=== PATIENT | female | born 1940 | race Caucasian/White ===

== ENCOUNTER 2016-07-28 11:50 | Emergency (ER) | payer OTHER ==
--- NOTE | 2016-07-28 13:47 | DIAGNOSTIC IMAGING REPORT ---
PROCEDURE: XR FOOT 3 VIEWS - RIGHT INDICATION: First metatarsal pain. Prior surgery. TECHNIQUE: Three views. COMPARISON: Comparison made radiographs of the right foot on 10/14/2008. FINDINGS: There are postoperative changes with bunionectomy (vertical osteotomy) and corrective osteotomy of the first metatarsal head (transfixed with solitary screw). In addition, there is a vertical osteotomy of the lateral fifth metatarsal head/neck. There are mild degenerative change of the right midfoot. The rest of the osseous structures and joint spaces are within normal limits there is no evidence of acute process IMPRESSION: 1. Postoperative changes of the right foot. 2. Status post bunionectomy and corrective osteotomy of the first metatarsal head. 3. Status post vertical osteotomy of the lateral fifth metatarsal head. 4. Mild degenerative change of the right midfoot. 5. No change. No evidence of acute process. 6. Findings discussed with MALDONADO Duran.
--- NOTE | 2016-07-28 13:56 | ED ORDER SUMMARY ---
..... Patient: DICK CARLSON OrderSheet [facility] VisitID: [id number] [address] [place] [address] 76y, F Registration Date/Time: 07/28/2016 ORDER SHEET Weight: 78.0 kg (stated) Allergies: Keflex GENERAL ORDERS: Foot 3V Right Urgent (13:17 07/28/2016 HBivens A.R.N.P.) (Ack 13:26 LTapper) (13:30 LTapper) Suture Removal (13:17 07/28/2016 HBivens A.R.N.P.) (14:04 Jasmin R.N.) MEDICATION ORDERS: IV FLUIDS: ORDER SHEET NOTES: [Electronically signed by Amada Prater R.N. (14:36 07/28/2016)] [Electronically signed by Vicki Merchant.R.N.P. (16:09 07/28/2016)] [Electronically locked/signed by Amada Prater R.N. (14:36 07/28/2016)]
--- NOTE | 2016-07-28 13:56 | ED NURSING NOTES ---
Clinical Report - Nurses [facility] [place] [address] [address] 07/28/2016 11:53 Patient: DICK CARLSON [facility]#: [id number] TRIAGE Triage time 12:21. Acuity: LEVEL 3. Chief Complaint: RECHECK OF WOUND and SUTURE REMOVAL. Alert. No acute distress. SANDY COMA SCORE: [place] Coma Scale: 15- eyes open spontaneously (4); best verbal response- oriented x 4 (5); best motor response- obeys commands (6). --12:30 Amada Prater R.N. 12:20 07/28/16. BP: 190/92. HR: 56. RR: 17. O2 saturation: 98%. Temp: 98.8 F (oral). Pain level now: 08/02. --12:30 Amada Prater R.N. 12:20 07/28/16. BP: 190/92. HR: 56. RR: 17. O2 saturation: 98%. Temp: 98.8 F (oral). Pain level now: 08/02. --12:30 Amada Prater R.N. Weight: 78 kg stated. Height/Length: 62 inches Per Patient. BMI: 31.5. --12:22 Amada Prater R.N. Medications Blood Pressure Pill. Hydrochlorothiazide Oral 25 mg, daily. --14:35 Amada Prater R.N. Allergies Keflex. --14:35 Amada Prater R.N. History Arrived by private vehicle. Historian: patient and family. Primary physician (haylee). Location: left great toe (Pain in rt foot also). She has had redness. Previous treatment: Previously seen ten days ago. Laceration repaired. PO antibiotic given in ED. Prescription given. PAST MEDICAL HX: Tetanus status: up-to-date. The patient is post-menopausal. SOCIAL HX: Never smoker. No alcohol use or drug use. FALL RISK ASSESSMENT: Fall risk assessment completed. No fall risk identified. NUTRITIONAL RISK ASSESSMENT: The nutritional risk assessment revealed no deficiencies. FUNCTIONAL ASSESSMENT: Functional assessment: no impairments noted. LEARNING NEEDS ASSESSMENT: The learning needs assessment revealed no barriers. SKIN INTEGRITY ASSESSMENT: Skin integrity risk assessment completed. No skin integrity risk identified. --12:30 Amada Prater R.N. PROBLEMS: Fractured Phalanx (Toe). Laceration. Peripheral Neuropathy. Charcot . Diabetes Mellitus. Tetanus Status. Cellulitis. Abscess. Immunizations. Mild cardial infarction. Hypertension. Neck Pain. Diabetes Mellitus Type 2. Asthma. Back Pain. --12:29 Amada Prater R.N. ADDITIONAL SURGERIES: Adenoidectomy. Hysterectomy. Tonsillectomy. --12:29 Amada Prater R.N. Interventions ID band on patient. To room. --12:30 Amada Prater R.N. PHYSICAL ASSESSMENT To room via wheelchair. GENERAL / NEURO / PSYCH: Alert. Oriented X 4. Appears in no acute distress. Patient's nutrition appears within normal limits. Appears anxious. Does not appear in pain. EXTREMITIES: Extremity pulses are within normal limits. Capillary refill is less than 2 seconds in the extremities. ROM of extremities within normal limits. SKIN: Skin is warm and dry. Healing wound. Sutures intact. --12:30 Amada Prater R.N. NURSING PROGRESS NOTES Patient gowned. Two patient identifiers checked. Call light placed in reach. Side rails up x 2. Bed placed in lowest position. Brakes of bed on. Patient ready for evaluation. --12:31 Amada Prater R.N. Sutures to left great toe removed by nurse; wound edges well approximated, minimal redness present antibiotic ointment applied (bacitracin). No drainage or tenderness present. --14:17 Amada Prater R.N. DISPOSITION / DISCHARGE Condition at departure: improved. No learning barriers present. Discharge instructions provided and reviewed with the patient and family. Patient verbalized understanding. Written instructions provided in Divehi. The patient was discharged home and accompanied by family. She left the Emergency Department ambulatory and via private vehicle. Family member driving. Medication list reviewed and validated. --14:34 Amada Prater R.N. 14:17 07/28/16. BP: 215/60 taken while sitting. HR: 58. RR: 20. O2 saturation: 99%. Temp: deferred. Pain level now: 0/10. --14:34 Amada Prater R.N. 14:17 07/28/16. BP: 215/60 taken while sitting. HR: 58. RR: 20. O2 saturation: 99%. Temp: deferred. Pain level now: . 12:20 07/28/16. BP: 190/92. HR: 56. RR: 17. O2 saturation: 98%. Temp: 98.8 F (oral). Pain level now: 08/02. --14:34 Amada Prater R.N. Locked/Released at 07/28/2016 14:36 by Amada Prater R.N.
--- NOTE | 2016-07-28 13:56 | ED ORDER SUMMARY ---
..... Patient: DICK CARLSON OrderSheet [facility] VisitID: [id number] [address] [address] 76y, F Registration Date/Time: 07/28/2016 ORDER SHEET Weight: 78.0 kg (stated) Allergies: Keflex GENERAL ORDERS: Foot 3V Right Urgent (13:17 07/28/2016 HBivens A.R.N.P.) (Ack 13:26 LTapper) (13:30 LTapper) Suture Removal (13:17 07/28/2016 HBivens A.R.N.P.) (14:04 Jasmin R.N.) MEDICATION ORDERS: IV FLUIDS: ORDER SHEET NOTES: [Electronically signed by Amada Prater R.N. (14:36 07/28/2016)] [Electronically signed by Vicki Merchant.R.N.P. (16:09 07/28/2016)] [Electronically locked/signed by Amada Prater R.N. (14:36 07/28/2016)]
--- NOTE | 2016-07-28 13:56 | ED CLINICAL REPORT ---
Clinical Report - Physicians/Mid Levels [facility] [address] [place] [address] 07/28/2016 11:53 [id number] Time Seen: 13:08; initial patient contact, initial documentation, patient care assumed. Arrived- By private vehicle. Historian- patient. RETURN VISIT: recently seen in this ED by another ED physician. Seen now for suture removal, a wound check, a new unrelated complaint and the same problem as before. HISTORY OF PRESENT ILLNESS Treated in emergency department ten days ago. Chief Complaint: RECHECK and SUTURE REMOVAL. The patient has experienced redness since the procedure was performed. Prescription antibiotic- Bactrim and Keflex. Previous emergency department treatment: laceration repair and prescription antibiotic given. (txed here on 07/16, had stitches placed in L toe 1, needs them removed, would red on edges, and wants to know if that is ok, also would like foot xray of R foot, denies any injury/trauma, but states due to her 'charcot' she can have fx easy, admits to no f/u states she doesn't like the foot dr she was referred to, she has seen him before and he didn't know anything about charcot and she had to research all the info herself, states she is switching pcp and can't get in to new one until Sep 07, also stated she wasn't taking either abx because they don't do good with her, they make her swell up). REVIEW OF SYSTEMS All systems otherwise negative, except as recorded above. PAST HISTORY See nurses notes. PROBLEMS: Fractured Phalanx (Toe). Laceration. Peripheral Neuropathy. Charcot . Diabetes Mellitus. Tetanus Status. Cellulitis. Abscess. Immunizations. Mild cardial infarction. Hypertension. Neck Pain. Diabetes Mellitus Type 2. Asthma. Back Pain. -- Amada Prater R.N. ADDITIONAL SURGERIES: Adenoidectomy. Hysterectomy. Tonsillectomy. -- Amada Prater R.N. SOCIAL HISTORY Never smoker. No alcohol use or drug use. No recent travel. Is a local resident. FAMILY HISTORY No significant family medical history. ADDITIONAL NOTES The nursing notes have been reviewed with agreement regarding the chief complaint, HPI, ROS, PMH and patient medications and allergies. PHYSICAL EXAM Vital Signs: 07/28/2016 12:20 BP: 190/92. HR: 56. RR: 17. O2 saturation: 98%. Temp: 98.8 F. Pain level now: 08/02. Have been reviewed as abnormal and appear to be correct. Hypertensive. Heart rate normal. Respiratory rate normal. Temperature normal. Oxygen saturation normal. Appearance: Alert. Oriented X3. No acute distress. LABS, X-RAYS, AND EKG X-Rays: Right foot negative. Rt Foot X-ray: (IMPRESSION: 1. Postoperative changes of the right foot. 2. Status post bunionectomy and corrective osteotomy of the first metatarsal head. 3. Status post vertical osteotomy of the lateral fifth metatarsal head. 4. Mild degenerative change of the right midfoot. 5. No change. No evidence of acute process. 6. Findings discussed with MALDONADO Duran. Electronically Final signed by:Abhishek Robert MD 07/28/2016 1:44:06 PM). The X-rays were interpreted by the radiologist and contemporaneously by me. PROGRESS AND PROCEDURES Patient and relative counseled in person regarding the patient's stable condition, test results and diagnosis. 13:55. Differential Diagnosis: Other possible considerations: suture removal, wound recheck, dm neuropathy, foot pain, fx, stress fx, tendonitis. Above considerations are based on history, physical exam and X-Ray data. Differential diagnosis was discussed with patient and patient's family. Disposition: Discharged home in good and improved condition (13:56). Condition: good and stable. CLINICAL IMPRESSION Suture removal; INSTRUCTIONS Warnings: GENERAL WARNINGS: Return or contact your physician immediately if your condition worsens or changes unexpectedly, if not improving as expected, or if other problems arise. Specifically return if problem worsens. Follow-up: Screening today revealed the patient's blood pressure to be in the hypertensive range. The patient should follow up with a primary care provider for blood pressure management. Understanding of the discharge instructions verbalized by patient and parent. Follow-up with: Mark Bailey DPM, Podiatry, , [facility], [address] [facility] [address], [facility], [id number] Follow up in about three days even if well. Call for an appointment. Summary of care provided to patient and family. (Electronically signed by Vicki Merchant A.R.N.P. 07/28/2016 16:09)
--- NOTE | 2016-07-28 13:56 | ED CLINICAL REPORT ---
Clinical Report - Physicians/Mid Levels [facility] [address] [place] [address] 07/28/2016 11:53 [id number] Time Seen: 13:08; initial patient contact, initial documentation, patient care assumed. Arrived- By private vehicle. Historian- patient. RETURN VISIT: recently seen in this ED by another ED physician. Seen now for suture removal, a wound check, a new unrelated complaint and the same problem as before. HISTORY OF PRESENT ILLNESS Treated in emergency department ten days ago. Chief Complaint: RECHECK and SUTURE REMOVAL. The patient has experienced redness since the procedure was performed. Prescription antibiotic- Bactrim and Keflex. Previous emergency department treatment: laceration repair and prescription antibiotic given. (txed here on 07/16, had stitches placed in L toe 1, needs them removed, would red on edges, and wants to know if that is ok, also would like foot xray of R foot, denies any injury/trauma, but states due to her 'charcot' she can have fx easy, admits to no f/u states she doesn't like the foot dr she was referred to, she has seen him before and he didn't know anything about charcot and she had to research all the info herself, states she is switching pcp and can't get in to new one until Sep 07, also stated she wasn't taking either abx because they don't do good with her, they make her swell up). REVIEW OF SYSTEMS All systems otherwise negative, except as recorded above. PAST HISTORY See nurses notes. PROBLEMS: Fractured Phalanx (Toe). Laceration. Peripheral Neuropathy. Charcot . Diabetes Mellitus. Tetanus Status. Cellulitis. Abscess. Immunizations. Mild cardial infarction. Hypertension. Neck Pain. Diabetes Mellitus Type 2. Asthma. Back Pain. -- Amada Prater R.N. ADDITIONAL SURGERIES: Adenoidectomy. Hysterectomy. Tonsillectomy. -- Amada Prater R.N. SOCIAL HISTORY Never smoker. No alcohol use or drug use. No recent travel. Is a local resident. FAMILY HISTORY No significant family medical history. ADDITIONAL NOTES The nursing notes have been reviewed with agreement regarding the chief complaint, HPI, ROS, PMH and patient medications and allergies. PHYSICAL EXAM Vital Signs: 07/28/2016 12:20 BP: 190/92. HR: 56. RR: 17. O2 saturation: 98%. Temp: 98.8 F. Pain level now: 08/02. Have been reviewed as abnormal and appear to be correct. Hypertensive. Heart rate normal. Respiratory rate normal. Temperature normal. Oxygen saturation normal. Appearance: Alert. Oriented X3. No acute distress. LABS, X-RAYS, AND EKG X-Rays: Right foot negative. Rt Foot X-ray: (IMPRESSION: 1. Postoperative changes of the right foot. 2. Status post bunionectomy and corrective osteotomy of the first metatarsal head. 3. Status post vertical osteotomy of the lateral fifth metatarsal head. 4. Mild degenerative change of the right midfoot. 5. No change. No evidence of acute process. 6. Findings discussed with MALDONADO Duran. Electronically Final signed by:Abhishek Robert MD 07/28/2016 1:44:06 PM). The X-rays were interpreted by the radiologist and contemporaneously by me. PROGRESS AND PROCEDURES Patient and relative counseled in person regarding the patient's stable condition, test results and diagnosis. 13:55. Differential Diagnosis: Other possible considerations: suture removal, wound recheck, dm neuropathy, foot pain, fx, stress fx, tendonitis. Above considerations are based on history, physical exam and X-Ray data. Differential diagnosis was discussed with patient and patient's family. Disposition: Discharged home in good and improved condition (13:56). Condition: good and stable. CLINICAL IMPRESSION Suture removal; INSTRUCTIONS Warnings: GENERAL WARNINGS: Return or contact your physician immediately if your condition worsens or changes unexpectedly, if not improving as expected, or if other problems arise. Specifically return if problem worsens. Follow-up: Screening today revealed the patient's blood pressure to be in the hypertensive range. The patient should follow up with a primary care provider for blood pressure management. Understanding of the discharge instructions verbalized by patient and parent. Follow-up with: Mark Bailey DPM, Podiatry, , [facility], [address] [facility] [address], [facility], [address] Follow up in about three days even if well. Call for an appointment. Summary of care provided to patient and family. (Electronically signed by Vicki Merchant A.R.N.P. 07/28/2016 16:09)
--- NOTE | 2016-07-28 16:10 | ED MAR SUMMARY ---
..... Medication Administration Record [facility] [address] [place], [place] [id number] Patient: DICK CARLSON Visit ID: [id number] 76y, F Weight: 78.0 kg Height/Length: 62 in BMI: 31.5 ALLERGIES: Keflex
--- NOTE | 2016-07-28 16:10 | ED MAR SUMMARY ---
..... Medication Administration Record [facility] [address] [place], [place] [id number] Patient: DICK CARLSON Visit ID: [id number] 76y, F Weight: 78.0 kg Height/Length: 62 in BMI: 31.5 ALLERGIES: Keflex
--- NOTE | 2016-07-28 16:10 | ED DISCHARGE INSTRUCTIONS ---
Patient: IDCK CARLSON General Instructions [facility] VisitID: [id number] [address] [place], [place] [id number] 76y, F Registration Date/Time: 07/28/2016 Suture removal; INSTRUCTIONS Warnings: GENERAL WARNINGS: Return or contact your physician immediately if your condition worsens or changes unexpectedly, if not improving as expected, or if other problems arise. Specifically return if problem worsens. Follow-up: Screening today revealed the patient's blood pressure to be in the hypertensive range. The patient should follow up with a primary care provider for blood pressure management. Understanding of the discharge instructions verbalized by patient and parent. Follow-up with: Mark Bailey DPM, Podiatry, , [facility], [address] [facility] [address], [facility], [address] Follow up in about three days even if well. Call for an appointment. Summary of care provided to patient and family. ADDITIONAL INFORMATION Suture Removal(No Complication) You were seen today for a suture removal. Your wound is healing as expected. It is unlikely that you will have any further problem. Home Care: Keep the wound clean and dry. Use a Band-Aid, if needed, to keep the wound from getting dirty for the next week. Wash the wound carefully with soap and water each day during the next week. You may shower and bathe as usual. Swimming is now permitted. Follow Up for any problems with your own doctor. Get Prompt Medical Attention if any of the following occur: Increasing pain in the wound Redness, swelling or pus coming from the wound Fever of 100.4F (38C) or higher, or as directed by your healthcare provider If the wound edges re-open Wound Check, No Infection Your laceration is healing as expected. There is no infection. Home care The following guidelines will help you care for your wound at home: Keep the wound clean and dry. If you were given a bandage, you may change it daily as follows: After removing the bandage, wash the area with soap and water. Use a wet cotton swab to loosen and remove any blood or crust that forms. After cleaning, apply a thin layer of antibiotic ointment. This will keep the wound clean and make it easier to remove the stitches. Reapply a fresh bandage. You may remove the bandage to shower as usual after the first 24 hours, but do not soak the area in water (no swimming) until the sutures are removed. If surgical tape was used, keep the area clean and dry. If it becomes wet, blot it dry with a towel. Follow-up care If sutures or mateo are in place, it is important to keep your appointment for removal. If they are left in place too long permanent clark may remain. If surgical tape closures were applied, you may remove them yourself if they have not fallen of by 10 days after the injury. When to seek medical care Get prompt medical attention if any of the following occur: Increasing pain in the wound Redness, swelling, or pus coming from the wound Fever of 100.4F (38C) or higher, or as directed by your health care provider If sutures or mateo come apart or fall out before your next appointment If the surgical tape closures fall off within seven days, or the wound edges re-open You have been given the following additional information: Suture Removal, No Complication Wound Check, Lac F/U (No Infection) (Electronically signed by Vicki Merchant A.R.N.P. 07/28/2016 16:09)
--- NOTE | 2016-07-28 16:10 | ED MED RECONCILIATION SUMMARY ---
Patient: DICK CARLSON Medication Reconciliation Report [facility] VisitID: [id number] [address] [place] [address] 76y, F Registration Date/Time: 07/28/2016 Weight: 78.0 kg Height/Length: 62 in. BMI: 31.5 ALLERGIES: Keflex The patient's Home Medications are listed below: THE FOLLOWING MEDICATIONS NEED TO BE RECONCILED: Blood Pressure Pill Hydrochlorothiazide Oral 25 mg, daily The source(s) of the original Home Medication information: Not obtained. The following Medications were given to the patient in the Emergency Department: None. The following Medications were prescribed to the patient: None.
--- NOTE | 2016-07-28 16:10 | ED DISCHARGE INSTRUCTIONS ---
Patient: DICK CARLSON General Instructions [facility] VisitID: [id number] [address] [place], [place] [id number] 76y, F Registration Date/Time: 07/28/2016 Suture removal; INSTRUCTIONS Warnings: GENERAL WARNINGS: Return or contact your physician immediately if your condition worsens or changes unexpectedly, if not improving as expected, or if other problems arise. Specifically return if problem worsens. Follow-up: Screening today revealed the patient's blood pressure to be in the hypertensive range. The patient should follow up with a primary care provider for blood pressure management. Understanding of the discharge instructions verbalized by patient and parent. Follow-up with: Mark Bailey DPM, Podiatry, , [facility], [address] [facility] [address], [facility], [address] Follow up in about three days even if well. Call for an appointment. Summary of care provided to patient and family. ADDITIONAL INFORMATION Suture Removal(No Complication) You were seen today for a suture removal. Your wound is healing as expected. It is unlikely that you will have any further problem. Home Care: Keep the wound clean and dry. Use a Band-Aid, if needed, to keep the wound from getting dirty for the next week. Wash the wound carefully with soap and water each day during the next week. You may shower and bathe as usual. Swimming is now permitted. Follow Up for any problems with your own doctor. Get Prompt Medical Attention if any of the following occur: Increasing pain in the wound Redness, swelling or pus coming from the wound Fever of 100.4F (38C) or higher, or as directed by your healthcare provider If the wound edges re-open Wound Check, No Infection Your laceration is healing as expected. There is no infection. Home care The following guidelines will help you care for your wound at home: Keep the wound clean and dry. If you were given a bandage, you may change it daily as follows: After removing the bandage, wash the area with soap and water. Use a wet cotton swab to loosen and remove any blood or crust that forms. After cleaning, apply a thin layer of antibiotic ointment. This will keep the wound clean and make it easier to remove the stitches. Reapply a fresh bandage. You may remove the bandage to shower as usual after the first 24 hours, but do not soak the area in water (no swimming) until the sutures are removed. If surgical tape was used, keep the area clean and dry. If it becomes wet, blot it dry with a towel. Follow-up care If sutures or mateo are in place, it is important to keep your appointment for removal. If they are left in place too long permanent clark may remain. If surgical tape closures were applied, you may remove them yourself if they have not fallen of by 10 days after the injury. When to seek medical care Get prompt medical attention if any of the following occur: Increasing pain in the wound Redness, swelling, or pus coming from the wound Fever of 100.4F (38C) or higher, or as directed by your health care provider If sutures or mateo come apart or fall out before your next appointment If the surgical tape closures fall off within seven days, or the wound edges re-open You have been given the following additional information: Suture Removal, No Complication Wound Check, Lac F/U (No Infection) (Electronically signed by Vicki Merchant A.R.N.P. 07/28/2016 16:09)
--- NOTE | 2016-07-28 16:10 | ED MED RECONCILIATION SUMMARY ---
Patient: DICK CARLSON Medication Reconciliation Report [facility] VisitID: [id number] [address] [place] [address] 76y, F Registration Date/Time: 07/28/2016 Weight: 78.0 kg Height/Length: 62 in. BMI: 31.5 ALLERGIES: Keflex The patient's Home Medications are listed below: THE FOLLOWING MEDICATIONS NEED TO BE RECONCILED: Blood Pressure Pill Hydrochlorothiazide Oral 25 mg, daily The source(s) of the original Home Medication information: Not obtained. The following Medications were given to the patient in the Emergency Department: None. The following Medications were prescribed to the patient: None.
== END 2016-07-28 14:30 | disposition home or self-care (01) ==
LOC: ED SRH 11:50
DX: Z48.02 Encounter for removal of sutures (principal); X58.XXXD Exposure to other specified factors, subsequent encounter; E11.610 Type 2 diabetes mellitus with diabetic neuropathic arthropathy; I10 Essential (primary) hypertension

== ENCOUNTER 2016-09-23 10:06 | Outpatient (CLI) | payer OTHER ==
--- NOTE | 2016-09-26 12:59 | DIAGNOSTIC IMAGING REPORT ---
REFERRING PHYSICIAN/PROVIDER: Kevin Palacios MD CONSULTING CONTINUITY WRITER: Dayne Hayes Jr MD INDICATION: CARDIAC MURMUR Procedure: A two-dimensional transthoracic echocardiogram with color flow and Doppler was performed. The study quality was technically adequate. The patient was in normal sinus rhythm during the exam. Left Ventricle: There is mild concentric left ventricular hypertrophy. The LVEDd is 4.03 cm, posterior wall is 1.3 cm, and the basal interventricular septum is 1.3 cm. Left ventricular systolic function is normal without focal wall motion abnormalities. The ejection fraction is estimated to be 55-60%. Assessment of diastolic parameters indicates a relaxation abnormality of the left ventricle, consistent with normal filling pressures. Right Ventricle: The right ventricle is normal in size and function. Atria: Both atria are normal in size. The interatrial septum is intact with no evidence for an atrial septal defect. Mitral Valve: The mitral valve is normal in structure and function. There is mild mitral annular calcification. There is trace mitral regurgitation. Aortic Valve: The aortic valve is trileaflet. The aortic valve opens well. The aortic valve is slightly calcified. There is trace aortic regurgitation. Tricuspid Valve: The tricuspid valve leaflets are thin and pliable. There is trace tricuspid regurgitation. Pulmonary artery pressures cannot be estimated because of the lack of a measurable TR jet velocity. Pulmonic Valve: The pulmonic valve is not well seen, but is grossly normal. There is no pulmonic valvular regurgitation. There is no significant valvular heart disease. Great Vessels: The aortic root is normal size. The ascending aorta is normal in size. The IVC is of normal diameter and collapses greater than 50% with a sniff. This suggests a low right atrial pressure of 3 mm Hg. Pericardium/ Pleura There is no pericardial effusion. There is no pleural effusion. IMPRESSION: There is mild concentric left ventricular hypertrophy. Left ventricular systolic function is normal without focal wall motion abnormalities. The ejection fraction is estimated to be 55-60%. Assessment of diastolic parameters indicates a relaxation abnormality of the left ventricle, consistent with normal filling pressures. The right ventricle is normal in size and function. Pulmonary artery pressures cannot be estimated because of the lack of a measurable TR jet velocity. Both atria are normal in size. There is no significant valvular heart disease. The ascending aorta is normal in size.
== END 2016-09-23 23:00 ==
LOC: US SRH 10:06
DX: R01.1 Cardiac murmur, unspecified (principal)